=== PATIENT | male | born 1995 | race Two or more races ===

== ENCOUNTER 2020-12-22 19:40 | Emergency (ER) | payer OTHER ==
[~2020-12-22] VITALS: Ht 172.7 cm; Wt 84.0 kg
[2020-12-22 19:49] VITALS: BP 148/93
--- NOTE | 2020-12-22 22:25 | NUR ---
PT SEEN BY , SWABBED FOR COVID, AND PT IN NO RESP DISTRESS. GOOD AERATION AND OXYGENATION. PT GIVEN F/U AND D/C INSTRUCTIONS AND MEDS AND HE V/U. PT AMBULATED TO DISCHARGE.
== END 2020-12-22 22:27 | disposition home or self-care (01) ==
LOC: ED 22:21
DX: U07.1 COVID-19 (principal); J06.9 Acute upper respiratory infection, unspecified; B34.9 Viral infection, unspecified; M79.10 Myalgia, unspecified site
CPT/HCPCS: 99283; U0003; U0005